=== PATIENT | male | born 1970 | race Two or more races ===

== ENCOUNTER 2022-12-24 19:54 | Emergency (ER) | payer MEDICARE, MEDICAID ==
[~2022-12-24] VITALS: Ht 170.2 cm; Wt 61.6 kg
[2022-12-24] MEDS ORDERED: PROCHLORPERAZINE EDISYLATE 5 MG/ML 2ML VIAL IV ONE (20:15)
[2022-12-24] MEDS ORDERED: SODIUM CHLORIDE 0.9% 1,000 ML IVB ONE (20:15)
[2022-12-24] MEDS ORDERED: PANTOPRAZOLE 40 MG/10 ML VIAL INJ IV ONE (20:15)
[2022-12-24] MEDS ORDERED: MORPHINE SULFATE 4 MG/ML SYR/VIAL IV ONE (20:15)
[2022-12-24 20:35] LABS: Basophils # (auto) 0 10 ^3/uL (0-0.2); Basophils % (auto) 0.4 % (0.0-2.0); Eosinophils # (auto) 0 10 ^3/uL (0-0.8); Hematocrit 41.1 % (41.0-53.0); Hemoglobin 13.8 g/dL (13.5-17.5); Lymphocytes # (auto) 0.6 10 ^3/uL (0.4-5.4); Lymphocytes % (auto) 5.8 % (10.0-50.0); Mean Corpuscular Hemoglobin 31.6 pg (28.0-32.0); Mean Corpuscular Hgb Conc. 33.7 g/dL (32.0-36.0); Mean Corpuscular Volume 93.6 fL (80.0-100.0); Monocytes # (auto) 0.3 10 ^3/uL (0-1.3); Monocytes % (auto) 2.8 % (0.0-12.0); Neutrophils # (auto) 9.3 10 ^3/uL (1.6-8.6); Nucleated Red Blood Cells % 0.1 %; Red Blood Cells 4.39 10^6/uL (4.5-5.90); Red Cell Distribution Width 13.7 % (11.8-14.3); White Blood Cell 10.2 10^3/uL (4.4-10.8)
[2022-12-24 20:56] LABS: Albumin 4.1 g/dL (3.4-5.0); BUN/Creatinine Ratio 15.9; Calcium 9.3 mg/dL (8.5-10.1)
[2022-12-24 20:59] LABS: Bilirubin, Total 0.6 mg/dL (0.2-1.0); Total Protein 8.1 g/dL (6.4-8.2)
[2022-12-25] MEDS ORDERED: HYDR-4902 PO (02:57)
[2022-12-25 04:57] VITALS: BP 137/81
== END 2022-12-25 04:57 | disposition home or self-care (01) ==
LOC: ER 19:58
DX: R10.13 Epigastric pain (principal); R11.2 Nausea with vomiting, unspecified; R19.7 Diarrhea, unspecified; E11.22 Type 2 diabetes mellitus with diabetic chronic kidney disease; I12.9 Hypertensive chronic kidney disease with stage 1 through stage 4 chronic kidney disease, or unspecified chronic kidney disease; N18.9 Chronic kidney disease, unspecified
CPT/HCPCS: 36415; 74176; 80053; 82962; 83690; 85025; 96361; 96374; 96375; 99285; C9113; J0780; J2270; J7030